=== PATIENT | female | born 1990 | race Caucasian/White ===

== ENCOUNTER → 2016-09-23 | Outpatient (CLI) | payer BC | LOC: LAB 12:42 | DX: N93.8 Other specified abnormal uterine and vaginal bleeding (principal); Z32.02 Encounter for pregnancy test, result negative ==

== ENCOUNTER → 2016-12-21 | Outpatient (CLI) | payer BC, MEDICAID | LOC: LAB 09:13 | DX: Z32.01 Encounter for pregnancy test, result positive (principal) ==

== ENCOUNTER → 2017-10-05 | Outpatient (CLI) | payer MEDICAID | LOC: LAB 13:14 | DX: N30.01 Acute cystitis with hematuria (principal) ==

== ENCOUNTER → 2018-01-20 | Outpatient (CLI) | payer SELFPAY ==
[2018-01-20 21:32] LABS: CLUE CELLS PRESENT (Not Observd)
== END ==
LOC: LAB 19:27
PROVIDERS: Nurse Practitioner Family
DX: Z11.3 Encounter for screening for infections with a predominantly sexual mode of transmission (principal); N76.0 Acute vaginitis
CPT/HCPCS: Q0111

== ENCOUNTER → 2021-07-31 | Outpatient (CLI) | payer OTHER, MEDICAID ==
[2021-07-31 16:16] LABS: CLUE CELLS OBSERVED (Not Observd)
== END ==
LOC: LAB 15:52
PROVIDERS: Nurse Practitioner
DX: N76.0 Acute vaginitis (principal)
CPT/HCPCS: Q0111

== ENCOUNTER → 2021-08-21 | Outpatient (CLI) | payer OTHER, MEDICAID ==
[2021-08-21 19:37] LABS: CLUE CELLS OBSERVED (Not Observd)
== END ==
LOC: LAB 18:47
PROVIDERS: Nurse Practitioner
DX: N89.8 Other specified noninflammatory disorders of vagina (principal)
CPT/HCPCS: Q0111

== ENCOUNTER → 2021-12-01 | Outpatient (CLI) | payer MEDICAID ==
[2021-12-01 20:45] LABS: CLUE CELLS NOT OBSERVED (Not Observd)
== END ==
LOC: LAB 19:47
PROVIDERS: Nurse Practitioner
DX: N89.8 Other specified noninflammatory disorders of vagina (principal); R81 Glycosuria
CPT/HCPCS: Q0111

== ENCOUNTER → 2022-06-22 | Outpatient (CLI) | payer MEDICAID ==
[2022-06-22 18:16] LABS: CLUE CELLS NOT OBSERVED (Not Observd)
== END ==
LOC: LAB 17:59
PROVIDERS: Nurse Practitioner
DX: N76.0 Acute vaginitis (principal)
CPT/HCPCS: Q0111

== ENCOUNTER → 2023-03-04 | Outpatient (CLI) | payer MEDICAID ==
[2023-03-04 14:48] LABS: BASO # 0.02 K/mm3 (0.02-0.10); EOS # 0.07 K/mm3 (0.04-0.40); EOS % 1.6 % (1.0-5.0); HEMATOCRIT 40.7 % (37.0-47.0); HEMOGLOBIN 13.6 g/dL (12.5-16.0); LYMPH# 1.63 K/mm3 (1.50-4.00); MEAN CELL VOLUME 90 fl (78-100); MEAN CORPUSCULAR HEMOGLOBIN 30 pg (27-31); MEAN CORPUSCULAR HGB CONC 33 g/dL (33-37); MEAN PLATELET VOLUME 11.6 fl (7.4-10.4); MONO # 0.35 K/mm3 (0.20-0.80); NEU # 2.33 K/mm3 (1.40-6.50); PLATELET COUNT 210 K/mm3 (130-400); RED BLOOD COUNT 4.55 M/mm3 (4.10-5.30); RED CELL DISTRIBUTION WIDTH 11.7 % (11.5-14.5); WHITE BLOOD COUNT 4.4 K/mm3 (4.8-10.8)
[2023-03-04 14:55] LABS: ALBUMIN 4.5 g/dL (3.5-5.0); POTASSIUM 3.6 mmol/L (3.5-5.1)
[2023-03-04 14:56] LABS: CALCIUM 9.7 mg/dL (8.3-10.5)
[2023-03-04 14:58] LABS: TOTAL PROTEIN 7.6 g/dL (6.4-8.3)
[2023-03-04 15:00] LABS: TOTAL BILIRUBIN 0.5 mg/dL (0.2-1.2)
== END ==
LOC: LAB 14:18
PROVIDERS: Physician Assistant
DX: Z13.1 Encounter for screening for diabetes mellitus (principal); Z13.220 Encounter for screening for lipoid disorders; F53.0 Postpartum depression; F41.8 Other specified anxiety disorders; Z90.711 Acquired absence of uterus with remaining cervical stump; L65.9 Nonscarring hair loss, unspecified; R63.5 Abnormal weight gain; G47.00 Insomnia, unspecified; R53.83 Other fatigue; K90.9 Intestinal malabsorption, unspecified

== ENCOUNTER → 2024-04-28 | Outpatient (CLI) | payer BC ==
[2024-04-28 08:26] LABS: BASO # 0.02 K/mm3 (0.02-0.10); EOS # 0.05 K/mm3 (0.04-0.40); EOS % 1.4 % (1.0-5.0); HEMATOCRIT 38.1 % (37.0-47.0); HEMOGLOBIN 12.9 g/dL (12.5-16.0); LYMPH# 1.31 K/mm3 (1.50-4.00); MEAN CELL VOLUME 88 fl (78-100); MEAN CORPUSCULAR HEMOGLOBIN 30 pg (27-31); MEAN CORPUSCULAR HGB CONC 34 g/dL (33-37); MEAN PLATELET VOLUME 11.5 fl (7.4-10.4); MONO # 0.35 K/mm3 (0.20-0.80); NEU # 1.82 K/mm3 (1.40-6.50); PLATELET COUNT 197 K/mm3 (130-400); RED BLOOD COUNT 4.31 M/mm3 (4.10-5.30); RED CELL DISTRIBUTION WIDTH 12.2 % (11.5-14.5); WHITE BLOOD COUNT 3.6 K/mm3 (4.8-10.8)
[2024-04-28 08:27] LABS: ALBUMIN 4.4 g/dL (3.5-5.0)
[2024-04-28 08:28] LABS: CALCIUM 9.5 mg/dL (8.3-10.5)
== END ==
LOC: LAB 08:00
PROVIDERS: Physician Assistant
DX: Z13.220 Encounter for screening for lipoid disorders (principal); K90.9 Intestinal malabsorption, unspecified; R53.83 Other fatigue